=== PATIENT | female | born 1995 | race Caucasian/White ===

== ENCOUNTER 2018-02-11 23:09 | Emergency (ER) | payer OTHER ==
[~2018-02-11] VITALS: Ht 165.1 cm; Wt 68.2 kg
[2018-02-11 23:21] VITALS: TEMP 97.4
[2018-02-11] MEDS ORDERED: BACTRIM 400 MG-1 TAB PO (23:34)
[2018-02-11] MEDS ORDERED: BACTROBAN15 GM TOP (23:34)
[2018-02-12 01:17] VITALS: BP 115/64; PULSE 95
== END 2018-02-12 01:25 | disposition home or self-care (01) ==
LOC: COL.ER 23:09
DX: T78.3XXA Angioneurotic edema, initial encounter (principal)
CPT/HCPCS: J0171; J1200; J2930; J7030